=== PATIENT | female | born 1995 | race Caucasian/White ===

== ENCOUNTER 2017-08-16 19:00 | Emergency (ER) | payer OTHER, MEDICAID | END 2017-08-16 19:28 | disposition home or self-care (01) | LOC: E/R 19:28 | DX: J02.9 Acute pharyngitis, unspecified (principal) | CPT/HCPCS: 99283; Z7502 ==

== ENCOUNTER 2019-02-05 23:25 | Emergency (ER) | payer OTHER | END 2019-02-06 03:35 | disposition home or self-care (01) | LOC: FTE 23:25 | DX: S60.221A Contusion of right hand, initial encounter (principal); W22.8XXA Striking against or struck by other objects, initial encounter; Y92.9 Unspecified place or not applicable | CPT/HCPCS: 73110; 73110-RT; 73130-RT; 81025; 99283-25 ==